=== PATIENT | female | born 1980 | race Two or more races ===

== ENCOUNTER 2017-04-09 12:13 | Emergency (ER) | payer MEDICAID ==
[~2017-04-09] VITALS: Ht 160 cm; Wt 59.9 kg
[2017-04-09 12:56] VITALS: BP 151/83
[2017-04-09] MEDS ORDERED: AMOXICILLI250 MG/5 M ORAL (13:02)
[2017-04-09] MEDS ORDERED: ZITHROMAX250 MG ORAL (13:02)
[2017-04-09] MEDS ORDERED: Ketorolac 30mg Inj IM ONE (13:30)
[2017-04-09] MEDS ORDERED: TYLENOL EXTRA500 MG ORAL (13:31)
[2017-04-09] MEDS ORDERED: ZOFRAN4 M3 ORAL (13:31)
[2017-04-09 13:38] VITALS: BP 151/83
--- NOTE | 2017-04-09 16:23 | Emergency Room Report ---
History of Present Illness General Chief Complaint: Fever Source: Patient Present Illness HPI The patient is a 36-year-old female presenting for subjective fever, sore throat , and myalgia. She states that she was seen by her doctor when the symptoms began 5 days prior and given a prescription for azithromycin. She has been taking this as prescribed symptoms have not decreased. She was given a prescription for amoxicillin yesterday as well. She has been using Motrin for pain and fever but she states this has not been helping. Sore throat described as an 8/10 dull ache and is worse with swallowing. She does admit to nausea. She denies any cough. She denies other symptoms including vomiting, shortness of breath, chest pain, rash, abdominal pain, diarrhea Allergies: Coded Allergies: No Known Allergies (Unverified , 04/09/17) Patient History Past Medical History: see triage record Pertinent Family History: none Last Menstrual Period: 03/16/17 Now: No Reviewed Nursing Documentation: PMH: Agreed, PSxH: Agreed Nursing Documentation-PMH Past Medical History: No Stated History Review of Systems All Other Systems: negative except mentioned in HPI Physical Exam Vital Signs Date Time Temp Pulse Resp B/P Pulse Ox O2 Delivery O2 Flow Rate FiO2 04/09/17 12:44 99.1 95 16 151/83 100 Room Air Sp02 EP Interpretation: reviewed, normal General Appearance: no apparent distress, alert, GCS 15, non-toxic Head: normocephalic, atraumatic Eyes: bilateral eye PERRL, bilateral eye normal inspection ENT: hearing grossly normal, normal pharynx, no angioedema, normal voice, uvula midline, tonsillar swelling, pharyngeal erythema Neck: full range of motion, no bony tend, supple/symm/no masses Respiratory: chest non-tender, lungs clear, normal breath sounds, speaking full sentences Musculoskeletal: back normal, gait/station normal, normal range of motion, non- tender Neurologic: alert, oriented x3, responsive, motor strength/tone normal, sensory intact, speech normal Psychiatric: judgement/insight normal, memory normal, mood/affect normal, no suicidal/homicidal ideation Skin: normal color, no rash, warm/dry, well hydrated Lymphatic: no adenopathy Medical Decision Making PA Attestation Dr. Suggs is my supervising physician. Patient management was discussed with my supervising physician Diagnostic Impression: Primary Impression: Pharyngitis, acute Qualified Codes: J02.9 - Acute pharyngitis, unspecified ER Course The patient is a 36-year-old female presenting for URI symptoms Differential diagnosis include but not limited to pharyngitis, sinusitis, AOM, bronchitis, PNA Physical exam: Vitals within normal limits. Afebrile. No apparent distress HEENT exam: There is bilateral tonsillar edema, erythema.No exudate. Uvula midline. Moist mucous membranes. There is no cervical lymphadenopathy. Lungs are clear to auscultation bilaterally Skin is warm and dry. No rash IM Toradol given for pain with good relief. The patient will continue taking the prescribed antibiotics as directed. She is given a prescription for Tylenol and Zofran. She will continue to followup with her primary doctor. She is given a note for work for 3 days off. She will stay home, rest, and take in plenty fluids. ER precautions given Last Vital Signs Date Time Temp Pulse Resp B/P Pulse Ox O2 Delivery O2 Flow Rate FiO2 04/09/17 13:38 99.1 16 151/83 100 Room Air 04/09/17 12:44 95 Status: improved Disposition: HOME, SELF-CARE Condition: Improved Scripts Acetaminophen* (TYLENOL EXTRA STRENGTH*) 500 Mg Tablet 500 MG ORAL Q8H Y for Prn Headache/Temp > 101, #30 TAB 0 Refills Prov: ROBERTA VILLANUEVA 04/09/17 Ondansetron* (ZOFRAN*) 4 Mg Tablet 4 MG ORAL Q6H Y for Nausea & Vomiting, #20 TAB Prov: ROBERTA VILLANUEVA 04/09/17 Patient Instructions: Fever, Adult, Pharyngitis Additional Instructions: I discussed my findings with the patient. All questions and concerns have been answered. Treatment and medication compliance have been addressed. I advised the patient that they need to follow up with PMD in 3-5 days. Return to ED if symptoms worsen, new symptoms arise, or if needed for any reason. Patient verbalized understanding of discharge instructions. ROBERTA VILLANUEVA Apr 09, 2017 16:23
== END 2017-04-09 13:41 | disposition home or self-care (01) ==
LOC: EMR 13:10
DX: J02.9 Acute pharyngitis, unspecified (principal); R11.0 Nausea
CPT/HCPCS: 96372; 99284; J1885